=== PATIENT | female | born 1980 | race American Indian/Alaskan Native ===

== ENCOUNTER 2017-09-22 15:44 | Emergency (ER) | payer BC ==
[2017-09-22 15:50] VITALS: BP 108/78
--- NOTE | 2017-09-22 20:02 | Emergency Department Report ---
ED Extremity Problem HPI - General Chief complaint: Extremity Injury, Lower Stated complaint: ANKLE PAIN Time Seen by Provider: 09/22/17 19:30 Source: patient Mode of arrival: Ambulatory Limitations: No Limitations - History of Present Illness Initial comments: 36-year-old female with a past medical history of deficiency S , multiple clots, [place] filter placed comes in today for complaint of right ankle pain onset on Wednesday. Patient denies any injuries. Patient is on Eliquis for her deficiency S as well as her multiple clots. Patient reports that she just saw her waiter/waitress dining car last week. Patient reports that she feels a little bit of a lump on her medial distal ankle that is tender. She reports that it hurts when she ambulates. Patient denies any chest pain no shortness of breathing or leg swelling. 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) Radiation: none Severity scale (0 -10): 9 Quality: aching Consistency: constant Improves with: rest Worsens with: weight bearing Associated Symptoms: denies: chest pain, shortness of breath, fever - Related Data Previous Rx's Medication Instructions Recorded Last Taken Type Acetaminophen/Codeine [Tylenol 1 tab PO Q6H PRN #20 tab 09/22/17 Unknown Rx /Codeine # 3 tab] Allergies Allergy/AdvReac Type Severity Reaction Status Date / Time latex Allergy Swelling Verified 09/22/17 15:48 Penicillins Allergy Swelling Verified 09/22/17 15:48 ED Review of Systems ROS: Stated complaint: ANKLE PAIN Other details as noted in HPI Constitutional: denies: chills, fever Eyes: denies: eye pain, eye discharge, vision change ENT: denies: ear pain, throat pain Respiratory: denies: cough, shortness of breath, wheezing Cardiovascular: denies: chest pain, palpitations Endocrine: no symptoms reported Gastrointestinal: denies: abdominal pain, nausea, diarrhea Genitourinary: denies: urgency, dysuria, discharge Musculoskeletal: other (right ankle pain with no swelling). denies: back pain, joint swelling, arthralgia Skin: denies: rash, lesions Neurological: denies: headache, weakness, paresthesias Psychiatric: denies: anxiety, depression Hematological/Lymphatic: denies: easy bleeding, easy bruising ED Past Medical Hx - Past Medical History Additional medical history: Deficiency S - Medications Home Medications: Home Medications Medication Instructions Recorded Confirmed Last Taken Type Acetaminophen/Codeine [Tylenol 1 tab PO Q6H PRN #20 tab 09/22/17 Unknown Rx /Codeine # 3 tab] ED Physical Exam - General Limitations: No Limitations General appearance: alert, in no apparent distress - Head Head exam: Present: atraumatic, normocephalic - Eye Eye exam: Present: normal appearance - ENT ENT exam: Present: mucous membranes moist - Neck Neck exam: Present: normal inspection - Respiratory Respiratory exam: Present: normal lung sounds bilaterally. Absent: respiratory distress - Cardiovascular Cardiovascular Exam: Present: regular rate, normal rhythm. Absent: systolic murmur, diastolic murmur, rubs, gallop - Rectal Rectal exam: Present: deferred - Expanded Lower Extremity Exam Right Upper Leg exam: Present: normal inspection Knee exam: Present: normal inspection Lower Leg exam: Present: normal inspection Ankle exam: Present: normal inspection, full ROM, tenderness ( medial distal pea size lump). Absent: swelling Foot/Toe exam: Present: normal inspection, full ROM. Absent: tenderness, swelling Neuro vascular tendon exam: Present: no vascular compromise. Absent: pulse deficit, abnormal cap refill, extremity cold to touch Gait: Positive: observed and limited by pain - Back Exam Back exam: Present: normal inspection - Neurological Exam Neurological exam: Present: alert, oriented X3 - Psychiatric Psychiatric exam: Present: normal affect, normal mood - Skin Skin exam: Present: warm, dry, intact, normal color. Absent: rash ED Course Vital Signs 09/22/17 15:48 Temperature 97.8 F Pulse Rate 83 Respiratory 16 Rate Blood Pressure 108/78 O2 Sat by Pulse 100 Oximetry ED Medical Decision Making - Medical Decision Making Patient evaluated by this provider fast track. Reassured patient that this is a superficial phlebitis and that she is on Elaquis that she has no chest pain no shortness of breathing defect, capillary refills are brisk and less than 2 seconds. Discussed the patient was given a prescription for Tylenol No. 3 for pain and crutches to help her ambulate. Discussed the patient to elevate foot to apply warm compresses. If symptoms persists or gets worse she can follow back up with emergency room. Patient verbalized understanding. Critical care attestation.: If time is entered above; I have spent that time in minutes in the direct care of this critically ill patient, excluding procedure time. ED Disposition Clinical Impression: Superficial thrombophlebitis Qualifiers: Superficial thrombophlebitis-Involved body area: lower extremity Laterality: right Qualified Code(s): I80.01 - Phlebitis and thrombophlebitis of superficial vessels of right lower extremity Disposition: - TO HOME OR SELFCARE Is pt being admited?: No Does the pt Need Aspirin: No Condition: Stable Instructions: Superficial Thrombophlebitis (ED) Additional Instructions: Please take pain medication as prescribed please do not operate heavy machinery. If symptoms persist or gets worse please follow back up in emergency room. Recommend to follow up with Dr. waiter/waitress dining car's. Prescriptions: Acetaminophen/Codeine [Tylenol /Codeine # 3 tab] 1 tab PO Q6H PRN #20 tab PRN Reason: pain Referrals: ERNIE KING MD [Primary Care Provider] - 3-5 Days
== END 2017-09-22 20:20 | disposition home or self-care (01) ==
LOC: ED 15:44
DX: I80.9 Phlebitis and thrombophlebitis of unspecified site (principal); Z91.040 Latex allergy status; Z88.0 Allergy status to penicillin
CPT/HCPCS: 99283